=== PATIENT | female | born 1955 | race Caucasian/White ===

== ENCOUNTER 2018-11-05 13:00 | Outpatient (RCR) | payer SELFPAY | END 2018-11-05 23:59 | LOC: NS 13:00 | DX: E66.9 Obesity, unspecified (principal); Z68.32 Body mass index [BMI] 32.0-32.9, adult; I10 Essential (primary) hypertension; E78.2 Mixed hyperlipidemia; Z71.3 Dietary counseling and surveillance | CPT/HCPCS: 97802; 97803 ==

== ENCOUNTER 2018-12-03 09:21 | Outpatient (RCR) | payer SELFPAY | END 2018-12-06 23:59 | LOC: NS 09:21 | DX: E66.9 Obesity, unspecified (principal); Z68.32 Body mass index [BMI] 32.0-32.9, adult; I10 Essential (primary) hypertension; E78.2 Mixed hyperlipidemia; Z71.3 Dietary counseling and surveillance | CPT/HCPCS: 97803 ==

== ENCOUNTER 2018-12-31 09:38 | Outpatient (RCR) | payer SELFPAY | END 2019-01-05 23:59 | LOC: NS 09:38 | DX: E66.9 Obesity, unspecified (principal); Z68.32 Body mass index [BMI] 32.0-32.9, adult; I10 Essential (primary) hypertension; E78.2 Mixed hyperlipidemia; Z71.3 Dietary counseling and surveillance | CPT/HCPCS: 97803 ==

== ENCOUNTER 2019-01-27 10:37 | Outpatient (RCR) | payer SELFPAY | END 2019-02-05 23:59 | LOC: NS 10:37 | DX: E66.9 Obesity, unspecified (principal); Z68.32 Body mass index [BMI] 32.0-32.9, adult; I10 Essential (primary) hypertension; E78.2 Mixed hyperlipidemia; Z71.3 Dietary counseling and surveillance | CPT/HCPCS: 97803 ==

== ENCOUNTER 2019-02-24 09:34 | Outpatient (RCR) | payer SELFPAY | END 2019-03-08 23:59 | LOC: NS 09:34 | DX: E66.9 Obesity, unspecified (principal); Z68.32 Body mass index [BMI] 32.0-32.9, adult; I10 Essential (primary) hypertension; E78.2 Mixed hyperlipidemia; Z71.3 Dietary counseling and surveillance | CPT/HCPCS: 97803 ==

== ENCOUNTER 2019-04-07 09:28 | Outpatient (RCR) | payer SELFPAY | END 2019-04-07 23:59 | LOC: NS 09:28 | DX: E66.9 Obesity, unspecified (principal); Z68.32 Body mass index [BMI] 32.0-32.9, adult; I10 Essential (primary) hypertension; E78.2 Mixed hyperlipidemia; Z71.3 Dietary counseling and surveillance | CPT/HCPCS: 97803 ==

== ENCOUNTER 2019-04-28 08:35 | Outpatient (RCR) | payer SELFPAY | END 2019-05-08 23:59 | LOC: NS 08:35 | DX: Z71.3 Dietary counseling and surveillance (principal); E66.9 Obesity, unspecified; Z68.32 Body mass index [BMI] 32.0-32.9, adult | CPT/HCPCS: 97803 ==

== ENCOUNTER 2019-06-09 09:59 | Outpatient (RCR) | payer SELFPAY | END 2019-07-08 23:59 | LOC: NS 09:59 | DX: Z71.3 Dietary counseling and surveillance (principal); E66.9 Obesity, unspecified; Z68.32 Body mass index [BMI] 32.0-32.9, adult; I10 Essential (primary) hypertension; E78.2 Mixed hyperlipidemia | CPT/HCPCS: 97803 ==

== ENCOUNTER 2019-08-12 10:02 | Outpatient (RCR) | payer SELFPAY | END 2019-08-12 23:59 | disposition home or self-care (01) | LOC: NS 10:02 | DX: Z71.3 Dietary counseling and surveillance (principal); E66.9 Obesity, unspecified; Z68.32 Body mass index [BMI] 32.0-32.9, adult; I10 Essential (primary) hypertension; E78.2 Mixed hyperlipidemia | CPT/HCPCS: 97803 ==